=== PATIENT | female | born 1940 | race Caucasian/White ===

== ENCOUNTER 2016-11-07 15:01 | Emergency (ER) | payer OTHER ==
[~2016-11-07] VITALS: Wt 58.0 kg
[~2016-11-07 15:01] MED LIST: METO10TA92 PO; PREM625 PO; ZOLP10TA PO
[2016-11-07] MEDS ORDERED: SOD CHLORIDE 0.9% 1,000 ML IV STA (15:17)
[2016-11-07 15:59] LABS: BASOPHIL # 0.1 10^3/ul (0.0-0.1); BASOPHILS % 1.3 % (0.0-2.0); EOSINOPHILS # 0.4 10^3/ul (0.0-0.5); HEMOGLOBIN 12.8 g/dl (12.0-16.0); LYMPHOCYTES # 1.1 10^3/ul (0.8-2.9); LYMPHOCYTES % 19.1 % (15.0-51.0); MEAN CORPUSCULAR HEMOGLOBIN 28.4 pg (29.0-33.0); MEAN CORPUSCULAR VOLUME 88.7 fl (82.0-101.0); MEAN PLATELET VOLUME 10.1 fl (7.4-10.4); MONOCYTE # 0.7 10^3/ul (0.3-0.9); MONOCYTES % 12.5 % (0.0-11.0); NEUTROPHILS % 59.7 % (39.0-77.0); PLATELET COUNT 167 10^3/UL (140-415); RED BLOOD COUNT 4.51 10^6/ul (4.20-5.40); RED CELL DISTRIBUTION WIDTH 14.6 % (11.5-14.5); WHITE BLOOD COUNT 5.6 10^3/ul (4.8-10.8)
--- NOTE | 2016-11-07 15:59 | RADRPT ---
PROCEDURE: XR Chest. CLINICAL INDICATION: Altered Mental Status. Dyspnea. TECHNIQUE: Single frontal chest x-ray. COMPARISON: 02/12/2013 FINDINGS: The lungs are clear of acute infiltrates, edema, effusions, or masses. Prominent interstitial markin gs are present likely chronic or senescent in nature. Calcific atherosclerosis of the aorta is prese nt.. The cardiomediastinal silhouette is unremarkable. The osseous structures are intact. IMPRESSION: No acute cardiopulmonary disease. Senescent changes of the chest. RPTAT: GG .Armani Hennign MD, MD Date Time Electronically viewed and signed by .Armani Henning MD, MD on 11/07/2016 15:59 .L/
--- NOTE | 2016-11-07 16:04 | ERA ---
ER Documentation Chief Complaint Date/Time DATE: 11/07/16 TIME: 15:48 Chief Complaint COUGH WITH PHLEGM, FEVER AT HOME, SENT PER PM,D FOR EVAL, POSSIBLE PNA HPI This is a 76-year-old female with a history of dementia, anxiety, chronic dizziness and balance issues who is presenting with concerns of pneumonia. The patient has had several days of general fatigue, intermittent fever, chest congestion and a productive cough of clear and green sputum. She has not felt herself for several days. She was evaluated by her primary care doctor yesterday who ordered a x-ray as an outpatient. She was also started on amoxicillin at that time. The patient's family got a call today that requested that she come to the emergency department because the x-ray showed pneumonia. The patient does not endorse chills. She does describe a mild generalized headache that was worse a week ago but has improved since then. She denies any nausea or vomiting. She denies any chest pain. She denies trouble breathing aside from the cough. She does endorse mild epigastric discomfort that is exacerbated by her cough. She does not have any other abdominal pain. She has not had any changes to bowel movements or urination. The patient does endorse chronic dizziness with occasional falls. The patient did fall yesterday, but it was a slow fall and she denies any trauma at this time. She did not hit her head. She did not lose consciousness. The patient does have a history of dementia. She is awake and alert at this time, but she is only oriented 1-2. She knows her name. She knows that she is in a hospital, but she does not know which one. She cannot tell me the year. According to her daughter, this is her baseline, as she has waxing and waning confusion related to her dementia. ROS All systems reviewed and are negative except as per history of present illness. Medications Home Meds Reported Medications Olanzapine* (Zyprexa*) 2.5 Mg Tablet, 2.5 MG PO QHS, #30 TAB 11/07/16 Amoxicillin* (Amoxicillin*) 500 Mg Cap, 500 MG PO TID for 10 Days, #30 CAP TAKE 1 TAB TID FOR 10 DAYS,START DATE 11/06/16 11/07/16 Clonazepam* (Clonazepam*) 1 Mg Tablet, 1 MG PO DAILY Y for ANXIETY, TAB 11/07/16 Memantine* (Namenda*) 10 Mg Tablet, 10 MG PO BID, #60 TAB 11/07/16 Discontinued Reported Medications Estrogens Conjugated* (Premarin*) 0.625 Mg Tab, 0.625 MG PO DAILY 03/01/13 Zolpidem Tartrate* (Ambien*) 10 Mg Tablet, 10 MG PO HS 03/01/13 Discontinued Scripts Metoclopramide* (Reglan*) 10 Mg Tablet, 10 MG PO Q6 Y for NAUSEA AND/OR VOMITING , #10 TAB Prov:ADRIEL SOL MD 02/05/15 Allergies Allergies: Coded Allergies: No Known Drug Allergies (Verified Allergy, Mild, 11/07/16) PMhx/Soc History of Surgery: Yes (CHOLECYSTITIS, CATARACT, tubal ligation, esophogeal hernia) Anesthesia Reaction: Yes Hx Neurological Disorder: No Hx Respiratory Disorders: No Hx Cardiac Disorders: No Hx Psychiatric Problems: No Hx Miscellaneous Medical Probl: Yes (MEMORY, dementia) Hx Alcohol Use: No Hx Substance Use: No Hx Tobacco Use: No FmHx Family History: diabetes Physical Exam Vitals Vital Signs Date Time Temp Pulse Resp B/P Pulse Ox O2 Delivery O2 Flow Rate FiO2 11/07/16 15:04 98.9 88 22 100/57 94 Physical Exam Const: No apparent distress Head: Atraumatic Eyes: Normal Conjunctiva ENT: Normal External Ears, Nose and Mouth, no oropharyngeal erythema or exudate or edema or asymmetry. Neck: Full range of motion.~ No meningismus. Resp: Left lower lobe rhonchi, bibasilar rales Cardio: Regular rate and rhythm, no murmurs Abd: Soft, non tender, non distended. Normal bowel sounds Skin: No petechiae or rashes Back: No midline or flank tenderness Ext: No cyanosis, or edema Neur: Awake and alert, oriented 1-2, 5 out of 5 strength in all extremities, sensation intact Psych: Normal Mood and Affect Result Diagram: 11/07/16 1545 11/07/16 1545 Results 24 hrs Laboratory Tests Test 11/07/16 15:45 11/07/16 16:29 11/07/16 16:40 White Blood Count 5.610^3/ul Red Blood Count 4.5110^6/ul Hemoglobin 12.8g/dl Hematocrit 40.0% Mean Corpuscular Volume 88.7fl Mean Corpuscular Hemoglobin 28.4pg Mean Corpuscular Hemoglobin Concent 32.0g/dl Red Cell Distribution Width 14.6% Platelet Count 00302^3/UL Mean Platelet Volume 10.1fl Neutrophils % 59.7% Lymphocytes % 19.1% Monocytes % 12.5% Eosinophils % 7.0% Basophils % 1.3% Nucleated Red Blood Cells % 0.0/100WBC Neutrophils # (Manual) 310^3/ul Lymphocytes # 1.110^3/ul Monocytes # 0.710^3/ul Eosinophils # 0.410^3/ul Basophils # 0.110^3/ul Nucleated Red Blood Cells # 0.010^3/ul Sodium Level 135mmol/L Potassium Level 4.0mmol/L Chloride Level 102mmol/L Carbon Dioxide Level 26mmol/L Anion Gap 11 Blood Urea Nitrogen 9mg/dl Creatinine 0.75mg/dl Glucose Level 109mg/dl Calcium Level 8.7mg/dl Total Bilirubin 0.2mg/dl Direct Bilirubin 0.00mg/dl Indirect Bilirubin 0.2mg/dl Aspartate Amino Transf (AST/SGOT) 28IU/L Alanine Aminotransferase (ALT/SGPT) 31IU/L Alkaline Phosphatase 80IU/L Troponin I < 0.012ng/ml Total Protein 7.5g/dl Albumin 4.0g/dl Globulin 3.50g/dl Albumin/Globulin Ratio 1.14 Bedside Glucose 86mg/dL Urine Color STRAW Urine Clarity CLEAR Urine pH 7.0 Urine Specific [place] 1.002 Urine Ketones NEGATIVEmg/dL Urine Nitrite NEGATIVEmg/dL Urine Bilirubin NEGATIVEmg/dL Urine Urobilinogen NEGATIVEmg/dL Urine Leukocyte Esterase NEGATIVELeu/ul Urine Microscopic RBC 0/HPF Urine Microscopic WBC 0/HPF Urine Hemoglobin 1+mg/dL Urine Glucose NEGATIVEmg/dL Urine Total Protein NEGATIVEmg/dl Current Medications Medications (Trade) Dose Ordered Sig/Nikhil Route PRN Reason Start Time Stop Time Status Last Admin Dose Admin Sodium Chloride (NS) 1,000 ml @ 1,000 mls/hr Q1H STAT IV 11/07/16 15:17 11/07/16 16:16 DC 11/07/16 15:51 Procedures/MDM The patient's presentation is concerning for pneumonia. She has had infectious type symptoms for several days with congestion and a cough and had an x-ray yesterday that reportedly was consistent with pneumonia. She does have physical exam findings today that are potentially consistent with a left lower lobe pneumonia. A workup will be obtained. The patient is afebrile at this time. She is not tachypneic or tachycardic. She is oxygenating normally on room air at this time. I do not suspect a systemic inflammatory response or sepsis at this time. The patient's blood work was obtained and reviewed. The patient's CBC and CMP were unremarkable. The patient has no leukocytosis or left shift. The patient does not not appear to have signs of a systemic infection especially given her normal vital signs. The patient is not anemic today. Her platelet count is unremarkable. The patient's CMP showed normal electrolytes, normal renal function, normal transaminases. Her urinalysis showed no signs of hematuria or infection. The patient's chest x-ray did not reveal obvious active cardiopulmonary disease in the chest. However, it was limited to one view, so it is difficult to interpret the retrocardiac space. Clinically there were findings suggestive of pneumonia to the left lower lobe, and I am still suspicious of pneumonia despite the apparently clear x-ray. The patient does endorse a fall recently, but she denies any trauma and did not lose consciousness. He does have a history of dementia, but she is alert and awake at this time and is able to provide full details of her fall. She has no focal deficits at this time, and I do not suspect an intracranial abnormality clinically. The patient's EKG reveals a normal sinus rhythm with a ventricular rate of 66 bpm. The patient's GA interval, QRS and QTc are unremarkable. The patient's axis is left shifted, but they are not convincing signs of LVH otherwise. The patient does have nonspecific T-wave changes including T-wave inversions in leads III and the anterior leads of V1 through V3, which could represent previous ischemia, but she does not have clinical findings consistent with an acute coronary syndrome at this time. As stated above, the patient's troponin is negative. The patient had a previous EKG performed in 2014 that revealed anterior changes as well. I do not suspect a cardiac etiology of her symptoms today. The patient does report a chronic history of dizziness. This could be related to the benzodiazepine that she is on. While the patient does not have any obvious injuries or falls today, she will be given education on fall prevention. She will also be instructed to utilize the walker that she has. She needs to follow-up closely with her primary care doctor. At this time, it is entirely possible the patient has pneumonia given her symptoms. My clinical suspicion is moderate to high in spite of the relatively normal chest x-ray. I do not see an overt consolidation or opacity. I intend to treat for atypical pneumonia with azithromycin. The patient be instructed to stop the amoxicillin. She should follow-up with her primary care doctor in 1 -3 days. At this time, the patient is stable for discharge. She will be given precautions with which to return to the emergency department. Departure Diagnosis: Primary Impression: Pneumonia Qualified Code: J18.9 - Pneumonia due to infectious organism, unspecified laterality, unspecified part of lung Additional Impression: Risk for falls Condition: Stable Patient Instructions: Fall Prevention, Pneumonia (Adult) Additional Instructions: Thank you for for coming to [facility] for your care today. Please ask your nurse or provider if you have questions about your care today and do not leave until all your questions have been answered. Please use any medications given as directed and follow-up with your doctor (or the doctor you were referred to) in the next 2-3 days. If you do not have a primary care doctor you may follow up at the [facility] (listed below). You may also use motrin and tylenol as needed for fever and/or pain unless instructed otherwise by your provider or nurse. Indications for more urgent follow-up have been discussed, but you may return to the Emergency Department at ANY time for any worrisome or worsening symptoms. If you have abdominal pain, please know that no test or exam you received is perfect and you should follow up within 8 hours for continued pain. If you had any imaging studies today, such as an X-Ray or CT Scan, these studies will be reviewed later by a radiologist. You will be called if there are important findings that were not identified today, so make sure the contact information you provided at registration is correct. If you received any narcotic pain control medicine today, such as Vicodin, Morphine or Dilaudid, your coordination and judgment may be affected for a number of hours. Please do not drive or operate heavy machinery, and you may want someone to assist you at home. If you were given a prescription for narcotic medication, be aware that it is very addictive- use sparingly and only if necessary. NITESH ARRINGTON MD Nov 07, 2016 15:59
[2016-11-07] MEDS ORDERED: MEMA10TA16 PO (16:21)
[2016-11-07] MEDS ORDERED: CLON1TAB3 PO (16:22)
[2016-11-07] MEDS ORDERED: AMO500 PO (16:24)
[2016-11-07 16:30] LABS: ALBUMIN/GLOBULIN RATIO 1.14; BILIRUBIN,INDIRECT 0.2 mg/dl (0-1.1); BILIRUBIN,TOTAL 0.2 mg/dl (0.2-1.3); CALCIUM 8.7 mg/dl (8.4-10.2); CREATININE 0.75 mg/dl (0.44-1.00); TOTAL PROTEIN 7.5 g/dl (6.1-8.1)
[2016-11-07] MEDS ORDERED: OLAN2.5T4 PO (16:30)
[2016-11-07 16:49] LABS: ADD UMIC YES; UR ASCORBIC ACID NEGATIVE (NEGATIVE); UR BILIRUBIN (Dip) NEGATIVE (NEGATIVE); UR BLOOD (Dip) 1+ mg/dL (NEGATIVE); UR CLARITY CLEAR (CLEAR); UR COLOR STRAW (YELLOW); UR GLUCOSE (Dip) NEGATIVE (NEGATIVE); UR KETONES (Dip) NEGATIVE (NEGATIVE); UR LEUKOCYTE ESTERASE (Dip) NEGATIVE Leu/ul (NEGATIVE); UR NITRITE (Dip) NEGATIVE (NEGATIVE); UR RBC 0 /HPF (0-5); UR SPECIFIC GRAVITY (Dip) 1.002 (1.003-1.030); UR TOTAL PROTEIN (Dip) NEGATIVE (NEGATIVE); UR UROBILINOGEN (Dip) NEGATIVE (NEGATIVE)
[2016-11-07] MEDS ORDERED: AZIT250T94 PO (17:31)
[2016-11-07 17:58] VITALS: BP 137/68; PULSE 80; RESP 18
== END 2016-11-07 18:02 | disposition home or self-care (01) ==
LOC: E/R 15:01
DX: J18.9 Pneumonia, unspecified organism (principal); R07.9 Chest pain, unspecified
CPT/HCPCS: 36415; 71010; 80053; 81001; 82962; 84484; 85025; 93005; 99285; J7030

== ENCOUNTER 2018-10-21 16:21 | Emergency (ER) | payer MEDICARE, OTHER ==
[~2018-10-21] VITALS: Wt 78.0 kg
[~2018-10-21 16:21] MED LIST changes: +ACET325T33 PO; +CLON1TAB13 PO; +MECL12.574 PO; +MEMA10TA PO; -METO10TA92 PO; +OLAN2.5T28 PO; -PREM625 PO; -ZOLP10TA PO
[2018-10-21 19:55] VITALS: BP 188/79; PULSE 65; RESP 19
--- NOTE | 2018-10-21 21:44 | ERD ---
ER Documentation Chief Complaint Chief Complaint DYSURIA , ON KELEX X 1 DAY, CIPRO X 2 FOR 1 DAY HPI This is an 78-year-old female brought in by her daughter with concerns for dysuria for the past several days. Patient has had no back pain or fevers or abdominal pain or nausea, vomiting, or diarrhea. Patient took a course of ciprofloxacin for approximately 1 week, but continued to have symptoms. She did report to an urgent care which prescribed her Keflex twice daily for 7 days. She is on her first day of Keflex. She states her symptoms have improved overall but she is continued to have burning on urination. No other symptoms reported currently. ROS All systems reviewed and are negative except as per history of present illness. Medications Home Meds Active Scripts Acetaminophen* (Tylenol*) 325 Mg Tablet, 2 TAB PO Q6 PRN for PAIN AND OR ELEVATED TEMP, #20 TAB Prov:ROBYN LEBLANC PA-C 10/21/18 Meclizine Hcl* (Antivert*) 12.5 Mg Tab, 12.5 MG PO Q6H PRN for DIZZINESS, #20 TAB Prov:PABLO SERVIN MD 04/30/18 Reported Medications Olanzapine* (Zyprexa*) 2.5 Mg Tablet, 2.5 MG PO QHS, #30 TAB 04/30/18 Memantine* (Namenda*) 10 Mg Tablet, 10 MG PO BID, #60 TAB 04/30/18 Clonazepam* (Clonazepam*) 1 Mg Tablet, 1 MG PO DAILY PRN for ANXIETY, TAB 04/30/18 Allergies Allergies: Coded Allergies: No Known Drug Allergies (Verified Allergy, Mild, 04/30/18) PMhx/Soc History of Surgery: Yes (Cholecystectomy, CATARACT, tubal ligation, hernia repair) Anesthesia Reaction: Yes Hx Neurological Disorder: No Hx Respiratory Disorders: No Hx Cardiac Disorders: No Hx Psychiatric Problems: No Hx Miscellaneous Medical Probl: Yes (dementia) Hx Alcohol Use: No Hx Substance Use: No Hx Tobacco Use: No Smoking Status: Never smoker FmHx Family History: No diabetes Physical Exam Vitals Vital Signs Date Temp Pulse Resp B/P (MAP) Pulse Ox O2 O2 Flow FiO2 Time Delivery Rate 10/21/18 97.6 65 19 188/79 97 Room Air 19:55 (115) 10/21/18 98.4 70 18 151/70 99 16:26 (97) Physical Exam Const: No acute distress Head: Atraumatic Eyes: Normal Conjunctiva ENT: Normal External Ears, Nose and Mouth. Neck: Full range of motion. No meningismus. Resp: Clear to auscultation bilaterally Cardio: Regular rate and rhythm, no murmurs Abd: Soft, non tender, non distended. Normal bowel sounds. No rebound tenderness or guarding. No McBurney's point tenderness. No suprapubic tenderness to palpation. Skin: No petechiae or rashes Back: No midline or flank tenderness. No CVA tenderness. Ext: No cyanosis, or edema Neur: Awake and alert Psych: Normal Mood and Affect Results 24 hrs Laboratory Tests Test 10/21/18 18:43 Urine Color YELLOW Urine Clarity CLEAR Urine pH 7.0 Urine Specific [place] 1.002 Urine Ketones NEGATIVE mg/dL Urine Nitrite NEGATIVE mg/dL Urine Bilirubin NEGATIVE mg/dL Urine Urobilinogen NEGATIVE mg/dL Urine Leukocyte Esterase NEGATIVE [place]/ul Urine Microscopic RBC 0 /HPF Urine Microscopic WBC 1 /HPF Urine Hemoglobin 1+ mg/dL Urine Glucose NEGATIVE mg/dL Urine Total Protein NEGATIVE mg/dl Procedures/MDM 78-year-old female presents the emergency department complaining of dysuria.Urine dip in the emergency department revealed no evidence of urinary tract infection. Low suspicion for acute surgical abdomen, sepsis, pyelonephrit is, serious bacterial infection, or other emergent pathology. Patient will be discharged home with a prescription for Tylenol and advised to follow-up with her primary care physician. The daughter who brought the patient and states they have an appointment tomorrow morning with the PCP. No evidence of life- threatening or emergent process. Patient will be discharged home with strict return precautions. I shared my medical decision making with the patient and the daughter and they were in agreement. Patient's blood pressure was elevated (>120/80) but appears stable without evidence of hypertension emergency or urgency. The patient is to follow-up and pursue outpatient monitoring and therapy with their primary care physician within 1 week and return immediately if they have any new, worsening, or concerning symptoms. Departure Diagnosis: Primary Impression: Dysuria Condition: Fair Patient Instructions: Dysuria Additional Instructions: Regrese a estas instalaciones MAANA para repetirle el examen.Regrese antes si hunter condicin se empeora. ROBYN LEBLANC PA-C Oct 21, 2018 21:44
== END 2018-10-21 19:55 | disposition home or self-care (01) ==
LOC: FTE 16:21
DX: R30.0 Dysuria (principal)
CPT/HCPCS: 81001; 87086; 99283